=== PATIENT | male | born 1990 | race African-American/Black ===

== ENCOUNTER 2024-10-14 13:05 | Emergency (ER) | payer OTHER ==
[~2024-10-14] VITALS: Ht 177.8 cm; Wt 63.6 kg
[2024-10-14 13:06] VITALS: TEMP 98.2
[2024-10-14] MEDS: LIDOCAINE 1% 10 ML VIAL SQ ONE (14:50)
[2024-10-14] MEDS ORDERED: CLIN-142 PO (16:02)
[2024-10-14 16:04] VITALS: BP 115/77; PULSE 90; RESP 18; O2SAT 99
== END 2024-10-14 16:13 | disposition home or self-care (01) ==
LOC: EMS 13:05
DX: L02.31 Cutaneous abscess of buttock (principal); F17.210 Nicotine dependence, cigarettes, uncomplicated
CPT/HCPCS: 99283; 10060; J3490